=== PATIENT | female | born 1985 | race Asian ===

== ENCOUNTER 2024-04-07 09:56 | Inpatient (IN) | payer BC, SELFPAY ==
[2024-04-07 10:06] VITALS: BP 141/92; BMI 30.7
[2024-04-07] MEDS: LR 1000 IV ×3 (10:30→22:39)
[2024-04-07 10:58] LABS: % Basophils 0.5 % (0-2); % Eosinophils 2.4 % (0-6); % Immature Granulocytes 0.3 % (0-0.5); % Monocytes 5.5 % (1.7-9.3); % Neutrophils 69.3 % (42.2-75.2); Absolute Eosinophils 0.2 10^3/uL (0-0.7); Absolute Lymphocytes 1.7 10^3/uL (1.2-3.4); Absolute Monocytes 0.4 10^3/uL (0.1-0.6); Absolute Neutrophils 5.4 10^3/uL (1.4-6.5); Hematocrit 40.6 % (37.0-47.0); Hemoglobin 14.5 g/dL (12.0-16.0); Mean Corp Hgb Conc. 35.7 g/dL (33.0-37.0); Mean Corpuscular Hgb 30.1 pg (27.0-31.0); Mean Corpuscular Volume 84.4 fL (81.0-99.0); Mean Platelet Volume 10.4 fL (7.4-10.4); Nucleated Red Blood Cells % 0 %; Platelet Count 256 10^3/uL (130-400); Red Blood Cell Count 4.81 10^6/uL (4.20-5.40); Red Cell Dist. Width 13.8 % (11.5-14.5); White Blood Cell Count 7.9 10^3/uL (4.8-10.8)
[2024-04-07 11:19] LABS: ALT (SGPT) 21 U/L (0-35); AST (SGOT) 26 U/L (14-36); Albumin 3.7 g/dl (3.5-5.0); Alkaline Phosphatase 121 U/L (38-126); Blood Urea Nitrogen 10 mg/dl (7-17); Calcium 9.4 mg/dl (8.4-10.2); Carbon Dioxide 18 mmol/L (22-30); Chloride 105 mmol/L (98-107); Estimated Creatinine Clearance > 125 ml/min; Glucose 124 mg/dl (70-99); Potassium 4.2 mmol/L (3.5-5.1); Sodium 135 mmol/L (135-145); Total Bilirubin 0.2 mg/dl (0.2-1.3); eGFR > 60.00
[2024-04-07] MEDS: CYTOTEC 50 MICROGRAM PO (14:20)
[2024-04-07] MEDS: CYTOTEC PO ×2 (20:17→23:27)
[2024-04-07] MEDS: PITOCIN 30 UNITS/NSS 500 ML IV (20:33)
[2024-04-08] MEDS: STADOL 1 MG IV (00:19)
[2024-04-08] MEDS: CYTOTEC PO ×3 (02:50→15:53)
[2024-04-08] MEDS: SUBLIMAZE 100 MCG EPIDURAL (02:55)
[2024-04-08] MEDS: FENTANYL/BUPIVACAINE 100 EPIDURAL ×2 (02:57→12:12)
[2024-04-08] MEDS: LR 1000 IV ×2 (03:45→12:00)
[2024-04-08] MEDS: TUMS CHEWABLE TABLET 400 MG PO (07:14)
[2024-04-08] MEDS: ZOFRAN 4 MG IV (08:46)
--- NOTE | 2024-04-08 11:00 | W.PN.OBG.DWH ---
Today's Communication / Plan
-
x
Subjective Data
-
Intellispace down
Pt pushing the last hour in multiple positions. Pit at 12
VSS Afeb
EFM-cat2, 160 with accels, variable decels with good return, good variability and accels noted, overall reassuring.
VE-no change in descent
A/P IUP at term, labor /PPROM-stable, cont with pushing
Objective Data
-
Laboratory Results
04/07/24 10:33
04/07/24 10:33
Vital Signs
Temp Pulse Resp BP
97.7 F 87 18 141/92
04/07/24 10:06 04/07/24 10:06 04/07/24 10:06 04/07/24 10:06
[2024-04-08] MEDS: BICITRA 30 ML PO (12:39)
[2024-04-08] MEDS: ANCEF 10 IV (12:39)
[2024-04-08] MEDS: TYLENOL 1000 MG PO (12:39)
[2024-04-08] MEDS: ZITHROMAX INFUSION 250 IV (12:55)
[2024-04-08] MEDS: PITOCIN 30 UNITS/NSS 500 ML IV (13:00)
[2024-04-08] MEDS: METHERGINE INJECTION 0.2 MG IM (13:10)
[2024-04-08 13:14] LABS: Cord ABG Comment CORD BLOOD
[2024-04-08] MEDS: HEMABATE 250 MCG IM (13:15)
[2024-04-08 13:25] LABS: B.E. Cord ABG -3.5 mMOL/L; HCO3 Cord ABG 23.2 mmol/L; O2 Saturation % Cord ABG 31.7 %; PCO2 Cord ABG 46 mmHg; PO2 Cord ABG 19 mmHg; pH Cord ABG 7.31
[2024-04-08 13:32] LABS: B.E. Cord ABG -3.7 mMOL/L; O2 Saturation % Cord ABG 11.1 %; PCO2 Cord ABG 57 mmHg; PO2 Cord ABG 9 mmHg; pH Cord ABG 7.25
[2024-04-08] MEDS: DILAUDID 1 MG IV (16:20)
[2024-04-08] MEDS: TORADOL 15 MG IV ×2 (18:13→23:58)
[2024-04-09] MEDS: TORADOL 15 MG IV ×2 (05:32→12:17)
[2024-04-09 05:57] LABS: Hematocrit 31.3 % (37.0-47.0); Hemoglobin 10.9 g/dL (12.0-16.0); Mean Corp Hgb Conc. 34.8 g/dL (33.0-37.0); Mean Corpuscular Hgb 29.5 pg (27.0-31.0); Mean Corpuscular Volume 84.8 fL (81.0-99.0); Mean Platelet Volume 10.5 fL (7.4-10.4); Platelet Count 209 10^3/uL (130-400); Red Blood Cell Count 3.69 10^6/uL (4.20-5.40); Red Cell Dist. Width 14.5 % (11.5-14.5); White Blood Cell Count 22.1 10^3/uL (4.8-10.8)
[2024-04-09] MEDS: PRENATAL PLUS 1 TABLET PO (07:55)
[2024-04-09] MEDS: SENOKOT-S 1 TABLET PO (07:55)
--- NOTE | 2024-04-09 07:55 | W.PN.ANS.POP ---
Anesthesia Post Operative
- Anesthesia Post Op Note
Vital Signs Stable-See Nursing Note: Yes
Airway Patent: Yes
Adequate Pain Control: Yes
Change in Mental Status: No
Current Postoperative Nausea & Vomiting: No
Anesthesia Complications: No
General Anesthetic Recall: No
Unplanned Admission: No
Post Op Hydration Adequate: Yes
[2024-04-09] MEDS: MOTRIN 600 MG PO (18:15)
[2024-04-10] MEDS: TYLENOL 650 MG PO ×2 (00:11→06:52)
[2024-04-10] MEDS: MOTRIN 600 MG PO ×2 (00:11→06:52)
[2024-04-10] MEDS: PRENATAL PLUS 1 TABLET PO (08:32)
[2024-04-10] MEDS: SENOKOT-S 1 TABLET PO (08:35)
--- NOTE | 2024-04-10 09:52 | W.DS.TRANS ---
DC Summary - [employer]
-
Discharge Instructions:
Discharge Diagnosis/Procedures s/p primary low-transverse section
Instructions:
Stand-Alone Forms: LDRP Delivery
Changes to Home Medications: No
Discharge Medications:
DC Medications w/original date entered in [employer]
vitamin-ferrous fumarate 28 mg iron-folic acid 800 mcg tablet ( Tablet) 1 tab PO DAILY 04/07/24
acetaminophen 325 mg tablet 650 mg (2 x 325 mg) PO Q4HPRN PRN mild pain #0 tabs 04/10/24
ibuprofen 600 mg tablet 600 mg PO Q6HPRN PRN cramps #60 tabs 04/10/24
oxycodone 5 mg tablet 5 mg PO Q4H PRN severe pain #5 tabs 04/10/24
sennosides 8.6 mg-docusate sodium 50 mg tablet 1 tab PO DAILYPRN PRN constipation #0 tabs 04/10/24
Home Medication Changes
Pending Results: No
Total time spent discharging patient (in min): 20
[2024-04-11 11:53] LABS: Syphilis/T. pallidum Ab Reflex Negative (Negative)
== END 2024-04-10 11:45 | disposition home or self-care (01) | DRG 788 ==
LOC: LDRP 09:56
PROVIDERS: Obstetrics & Gynecology; ADMITTING PHYSICIAN Obstetrics & Gynecology; FAMILY PHYSICIAN Emergency Medicine
PROC: 10D00Z1 Extraction of Products of Conception, Low, Open Approach (ICD-10-PCS; 2024-04-08)
PROC: 4A1HXCZ Monitoring of Products of Conception, Cardiac Rate, External Approach (ICD-10-PCS; 2024-04-08)
DX: O76 Abnormality in fetal heart rate and rhythm complicating labor and delivery (principal); O64.0XX0 Obstructed labor due to incomplete rotation of fetal head, not applicable or unspecified; O42.92 Full-term premature rupture of membranes, unspecified as to length of time between rupture and onset of labor; Z37.0 Single live birth; Z3A.37 37 weeks gestation of pregnancy; O62.2 Other uterine inertia; O13.4 Gestational [pregnancy-induced] hypertension without significant proteinuria, complicating childbirth
CPT/HCPCS: 88307; 36415; 80053; 82803; 85025; 85027; 86780; 86850; 86900; 86901